=== PATIENT | female | born 1995 ===

== ENCOUNTER 2017-05-29 18:16 | Emergency (ER) | payer SELFPAY ==
[2017-05-29 18:26] VITALS: BP 121/82; TEMP 97.8; O2SAT 99
--- NOTE | 2017-05-29 21:00 | ED PDOC ---
HPI: Psych/Substance Abuse Time Seen by Provider: 05/29/17 18:31 Chief Complaint (Nursing): Substance Abuse Chief Complaint (Provider): Substance Abuse History Per: Patient, EMS History/Exam Limitations: no limitations Onset/Duration Of Symptoms: Hrs (prior to arrival) Current Symptoms Are (Timing): Still Present Additional Complaint(s): 21 year old female with no past medical history was brought to the ER by EMS for evaluation of substance abuse s/p finding her stumbling on the street prior to arrival. Patient is reported to be awake and alert. She offers no other medical complaints at this time. PMD: non H provider Past Medical History Reviewed: Historical Data, Nursing Documentation, Vital Signs Vital Signs: Last Vital Signs Temp 97.8 F 05/29/17 18:22 Pulse 130 H 05/29/17 18:22 Resp 18 05/29/17 18:22 BP 121/82 05/29/17 18:22 Pulse Ox 99 05/29/17 18:22 - Medical History PMH: No Chronic Diseases - Surgical History Surgical History: No Surg Hx - Family History Family History: States: Unknown Family Hx - Allergies Allergies/Adverse Reactions: Allergies Allergy/AdvReac Type Severity Reaction Status Date / Time No Known Allergies Allergy Verified 05/29/17 18:26 Review of Systems ROS Statement: Except As Marked, All Systems Reviewed And Found Negative Neurological: Negative for: Confusion ((+) alert) Physical Exam - Reviewed Nursing Documentation Reviewed: Yes Vital Signs Reviewed: Yes - Physical Exam Appears: Positive for: Well, Non-toxic, No Acute Distress Head Exam: Positive for: ATRAUMATIC, NORMAL INSPECTION, NORMOCEPHALIC Skin: Positive for: Normal Color, Warm, Dry Eye Exam: Positive for: Normal appearance Neck: Positive for: Normal, Painless ROM Respiratory: Positive for: Normal Breath Sounds. Negative for: Respiratory Distress Extremity: Positive for: Normal ROM. Negative for: Deformity, Swelling Neurologic/Psych: Positive for: Alert, Oriented - ECG O2 Sat by Pulse Oximetry: 99 (RA) Pulse Ox Interpretation: Normal Medical Decision Making Medical Decision Making: Plan: Patient is alert and oriented with her surroundings. She is able to remember her mother's phone number and has a steady gait. Upon provider evaluation patient is medically stable, and requires no further treatment in the ED at this time. Patient will be discharged home. Patient's parents are coming to pick her up. Scribe Attestation: Documented by Dorys Colin, acting as a scribe for Yee Hernandez PA-C Provider Scribe Attestation: All medical record entries made by the Scribe were at my direction and personally dictated by me. I have reviewed the chart and agree that the record accurately reflects my personal performance of the history, physical exam, medical decision making, and the department course for this patient. I have also personally directed, reviewed, and agree with the discharge instructions and disposition. Disposition - Clinical Impression Clinical Impression: Alcohol abuse - Patient ED Disposition Is Patient to be Admitted: No - Disposition Disposition: Routine/Home Disposition Time: 20:59 Condition: GOOD
[2017-05-29 21:10] VITALS: PULSE 94; RESP 20
== END 2017-05-29 21:11 | disposition home or self-care (01) ==
LOC: H.ER 18:16
DX: F10.10 Alcohol abuse, uncomplicated (principal)